=== PATIENT | female | born 1980 | race Hispanic/Latino ===

== ENCOUNTER 2016-10-19 16:28 | Emergency (ER) | payer SELFPAY ==
[~2016-10-19] VITALS: Ht 170.2 cm; Wt 100.0 kg
[2016-10-19] MEDS ORDERED: ANTIVERT PO (17:26)
[2016-10-19] MEDS ORDERED: ZOFRAN ODT4 MG PO (17:26)
[2016-10-19] MEDS ORDERED: PRENATAL MULTI1 CAP PO (17:57)
[2016-10-19 18:40] VITALS: BP 118/73
== END 2016-10-19 18:40 | disposition home or self-care (01) | DRG 998 ==
LOC: ED 16:28
DX: O26.899 Other specified pregnancy related conditions, unspecified trimester (principal); O99.330 Smoking (tobacco) complicating pregnancy, unspecified trimester; O99.340 Other mental disorders complicating pregnancy, unspecified trimester; O99.519 Diseases of the respiratory system complicating pregnancy, unspecified trimester; R42 Dizziness and giddiness; J45.909 Unspecified asthma, uncomplicated; F41.9 Anxiety disorder, unspecified; F31.9 Bipolar disorder, unspecified; F17.200 Nicotine dependence, unspecified, uncomplicated